=== PATIENT | female | born 1980 | race Two or more races ===

== ENCOUNTER 2018-05-20 13:52 | Outpatient (CLI) | payer OTHER ==
[~2018-05-20 13:52] MED LIST: SEPTRA 80/400 T1 TAB
== END 2018-05-20 14:01 | disposition home or self-care (01) ==
LOC: SONOGRAMA 13:52
DX: N92.5 Other specified irregular menstruation (principal)

== ENCOUNTER 2018-06-28 11:22 | Outpatient (CLI) | payer OTHER | END 2018-06-28 17:57 | disposition home or self-care (01) | LOC: SONOGRAMA 11:22 | DX: N84.0 Polyp of corpus uteri (principal) ==

== ENCOUNTER 2018-10-17 08:25 | Day surgery (SDC) | payer OTHER ==
[~2018-10-17 08:25] MED LIST changes: +SYNTHROID50 MCG PO
[2018-10-17] MEDS ORDERED: NAPROXEN SODIU550 MG PO (11:47)
== END 2018-10-17 14:25 | disposition home or self-care (01) ==
LOC: CIR.AMB 08:25
DX: N84.0 Polyp of corpus uteri (principal)

== ENCOUNTER 2018-10-28 20:21 | Emergency (ER) | payer OTHER ==
[~2018-10-28] VITALS: Ht 165.1 cm; Wt 63.0 kg
[~2018-10-28 20:21] MED LIST changes: +NAPROXEN SODIU550 MG PO
== END 2018-10-28 22:16 | disposition home or self-care (01) ==
LOC: ER 20:21
DX: R10.2 Pelvic and perineal pain (principal)

== ENCOUNTER 2022-07-12 21:19 | Emergency (ER) | payer OTHER ==
[~2022-07-12] VITALS: Ht 165.1 cm; Wt 68.0 kg
[2022-07-12] MEDS ORDERED: ULTRACET PO (23:03)
== END 2022-07-12 23:14 | disposition home or self-care (01) ==
LOC: ER 21:19
DX: S60.052A Contusion of left little finger without damage to nail, initial encounter (principal); S62.639A Displaced fracture of distal phalanx of unspecified finger, initial encounter for closed fracture; W22.8XXA Striking against or struck by other objects, initial encounter; Y93.H3 Activity, building and construction; Y92.9 Unspecified place or not applicable

== ENCOUNTER 2023-07-12 05:30 | Day surgery (SDC) | payer OTHER ==
[2023-07-06 14:49] LABS: INR 0.99; PARTIAL THROMBOPLASTIN TIME 26.1 SECONDS (22.0-34.0); PROTHROMBIN TIME 10.4 SECONDS (9.0-11.5)
[~2023-07-12 05:30] MED LIST changes: +SYNTHROID75 MCG PO; +ULTRACET PO
[2023-07-12] MEDS ORDERED: IBU600 MG PO (08:39)
== END 2023-07-12 11:00 | disposition home or self-care (01) ==
LOC: CIR.AMB 05:30
PROVIDERS: ATTEND Obstetrics & Gynecology Gynecology
DX: N72 Inflammatory disease of cervix uteri (principal); N87.9 Dysplasia of cervix uteri, unspecified; N84.0 Polyp of corpus uteri; Z20.822 Contact with and (suspected) exposure to COVID-19; E03.9 Hypothyroidism, unspecified; E11.9 Type 2 diabetes mellitus without complications